=== PATIENT | male | born 1945 | race Caucasian/White ===

== ENCOUNTER 2016-06-09 01:53 | Emergency (ER) | payer OTHER ==
[2016-06-09] MEDS ORDERED: ASPIRIN 81 MG CHEW TAB PO ONE (01:59)
[2016-06-09] MEDS ORDERED: METOPROLOL TARTRATE 5 MG/5 ML VIAL IVP ONE (02:02)
[2016-06-09 02:20] LABS: BASOPHILS % 0.7 (0.0-1.5); MEAN CORPUSCULAR HEMOGLOBIN 30.3 pg (28.0-34.0)
[2016-06-09 02:24] LABS: EOSINOPHILS % 2.1 % (0.0-6.8); LYMPHOCYTES # 1.4 # k/uL (0.6-4.0); MONOCYTES # 0.6 # k/uL (0.0-0.9); MONOCYTES % 7.4 % (0.0-11.0); NEUTROPHILS # 5.6 # k/uL (1.4-7.7)
[2016-06-09] MEDS ORDERED: IPRATROPIUM/ALBUTEROL SULFATE 3 ML AMPUL.NEB NEB ONE (02:29)
[2016-06-09] MEDS ORDERED: BUDESONIDE 0.5MG/2ML AMPUL.NEB NEB ONE (02:30)
[2016-06-09 02:43] LABS: eGFR (African) > 60; eGFR (Non-African) > 60
--- NOTE | 2016-06-09 02:48 | Diagnostic Imaging Report ---
JANNETTE DOBBINS [facility] [address] [facility] [address] [address] Report Submission Date: Jun 09, 2016 2:13:50 AM OFFICE SERVICES ASSISTANT Patient Study Name: RAUL TAVARES Date: Jun 09, 2016 2:03:21 AM OFFICE SERVICES ASSISTANT Modality Type: CR Gender: M Description: CHEST : 41 Institution: [facility] Physician: JANNETTE DOBBINS Ap portable upright radiographs of the chest Clinical history: Chest pain Technique: anterior /posterior portable upright Findings: Increased markings are present in the lung bases.. Lung sweeney are hyperinflated. There is cardiomegaly. The aorta is tortuous... Arch calcification is present. The bony thorax is unremarkable. No pneumothorax or pleural effusion is seen. Impression: Hyperinflation Increased bibasilar lung markings of indeterminate age Cardiomegaly Tortuous thoracic aorta with aortic arch calcification Electronically signed on Jun 09, 2016 2:13:50 AM OFFICE SERVICES ASSISTANT by: Jorge BROWNING
[2016-06-09] MEDS ORDERED: CloNIDine HCL 0.1 MG TABLET PO ONE (02:52)
--- NOTE | 2016-06-09 03:49 | ED Physician Documentation ---
Chest Pain - HISTORIAN Historian: patient - HPI Stated Complaint: difficulty breathing Chief Complaint: Chest Pain Additional Information: sudden onset, squeezing, no radiation Onset: hours (2) Timing: sudden onset Duration: sudden-onset Last known Well Date: 06/08/16 Last Known Well Time: 22:00 Last known Well Code/Unknown Code: Unknown Context: activity Severity: moderate Quality: pressure Chest Pain Radiation: no radiation Chest Pain Signs/Symptoms: tachycardia. denies: nausea, vomiting, diaphoresis, tachypnea, hypotension Worsened By: movement Relieved By: nothing Further Comments: no - ROS CONST: none MS/LYMPH: none GI/: none EYES/ENT: none SKIN/ENDO: none NEURO/PSYCH: none - PAST HX IN risk factors: hypertension, diabetes Type 2 GI disease: none Lung disease: none Surgeries/Procedures: other (tonsillectomy) Allergies/Adverse Reactions: Allergies Allergy/AdvReac Type Severity Reaction Status Date / Time No Known Allergies Allergy Verified 06/09/16 02:39 Home Medications: Ambulatory Orders Medication Instructions Recorded Alpha Lipoic Acid 600 mg PO DAILY #30 av 04/04/15 Aspirin 325 mg PO DAILY #30 u2 04/04/15 Vitamin B Complex [B Complex] 2 each PO D u2 04/04/15 Guaifenesin [Mucinex] 1,200 mg PO BID 04/22/15 Mupirocin Calcium [Bactroban Nasal] 1 gm NS TID 04/22/15 Naproxen Sodium [Aleve] 220 mg PO DAILY av 04/22/15 Testosterone [Androgel] 75 gm TD DAILY 04/22/15 Carvedilol [Coreg] 12.5 mg PO BS #14 tablet 06/09/16 Valsartan [Diovan] 80 mg PO D 06/09/16 - SOCIAL HX Smoking History: non-smoker Alcohol Use: none Drug Use: none - FAMILY HX Family HX: none - VITAL SIGNS Vital Signs: Vital Signs Temp Pulse Resp BP Pulse Ox 97.8 F 80 20 195/110 100 06/09/16 01:54 06/09/16 03:00 06/09/16 01:54 06/09/16 01:54 06/09/16 03:00 - REVIEWED ASSESSMENTS Nursing Assessment Reviewed: Yes Vitals Reviewed: Yes Progress - Results/Orders Results/Orders: chest pain work up ordered plu d-dimer and bnp - Progress Progress: pt. given 5 mg metoprolol ivp and 0.1 mg p.o. clonidine in er, duoneb tx and pulmicort 0.5 mg neb tx in er. Feels well by time of dicharge, pain free Critical Care Note - Critical Care Note Total Time (mins): 0 ED Results Lab/Radiology - Lab Results Lab Results: Lab Results 06/09/16 06/09/16 06/09/16 02:40 02:30 02:14 WBC RBC Hgb Hct MCV MCH MCHC RDW Plt Count Neut % (Auto) Lymph % (Auto) [place] % (Auto) Eos % (Auto) Baso % (Auto) Neut # Lymph # [place] # Eos # Baso # Reactive Lymphs % Reactive Lymphs # D-Dimer 437 ng/mL ng/mL (6.0-682) Sodium Potassium Chloride Carbon Dioxide BUN Creatinine Est GFR ( Amer) Est GFR (Non-Af Amer) Glucose Calcium Total Bilirubin AST ALT Alkaline Phosphatase Troponin I < 0.03 ng/mL L ng/mL (0.03-0.06) NT-Pro-B Natriuret Pep 317.2 pg/mL H pg/mL (15.0-125.0) Total Protein Albumin 06/09/16 06/09/16 02:14 02:14 WBC 8.10 K/ul K/ul (4.00-12.00) RBC 5.53 M/ul H M/ul (3.90-5.20) Hgb 16.8 g/dL g/dL (12.0-18.0) Hct 50.4 % % (37.0-53.0) MCV 91.1 fl fl (80.0-100.0) MCH 30.3 pg pg (28.0-34.0) MCHC 33.3 g/dL g/dL (30.0-36.0) RDW 14.4 % H % (11.3-14.3) Plt Count 212 K/mm3 K/mm3 (130-400) Neut % (Auto) 69.0 % % (39.0-79.0) Lymph % (Auto) 16.7 % % (16.0-50.0) [place] % (Auto) 7.4 % % (0.0-11.0) Eos % (Auto) 2.1 % % (0.0-6.8) Baso % (Auto) 0.7 (0.0-1.5) Neut # 5.6 # k/uL # k/uL (1.4-7.7) Lymph # 1.4 # k/uL # k/uL (0.6-4.0) [place] # 0.6 # k/uL # k/uL (0.0-0.9) Eos # 0.2 # k/uL # k/uL (0.0-0.6) Baso # 0.1 # k/uL # k/uL (0.0-0.5) Reactive Lymphs % 4.2 % % (0.0-5.0) Reactive Lymphs # 0.3 # k/uL # k/uL (0.0-0.8) D-Dimer Sodium 139 mmol/L mmol/L (136-145) Potassium 3.9 mmol/L mmol/L (3.5-5.0) Chloride 100 mmol/L mmol/L (98-110) Carbon Dioxide 28 mmol/L mmol/L (20-32) BUN 27 mg/dL H mg/dL (10-26) Creatinine 1.2 mg/dL mg/dL (0.4-1.5) Est GFR ( Amer) > 60 (60 - ) Est GFR (Non-Af Amer) > 60 (60 - ) Glucose 216 mg/dL H mg/dL (70-99) Calcium 9.4 mg/dL mg/dL (8.5-10.5) Total Bilirubin 0.4 mg/dL mg/dL (0.2-1.2) AST 24 U/L U/L (0-41) ALT 26 U/L U/L (0-45) Alkaline Phosphatase 71 U/L U/L (46-116) Troponin I NT-Pro-B Natriuret Pep Total Protein 7.6 g/dL g/dL (6.0-8.5) Albumin 4.6 g/dL g/dL (3.0-5.5) - Radiology Radiology Impressions: cxr neg - Orders Orders: ED Orders Category Date Time Status Continuous EKG monitoring Q30M Care 06/09/16 01:59 Active Continuous Pulse Oximetry Q30M Care 06/09/16 01:[address] Saline Lock/IV NOW Care 06/09/16 01:59 Active CHEST 1 VIEW [RAD] Stat Exams 06/09/16 01:59 Completed BNP [NT-proBNP] Routine Lab 06/09/16 02:30 Completed CBC/PLATELET/DIFF Routine Lab 06/09/16 02:14 Completed CMP Routine Lab 06/09/16 02:14 Completed D DIMER Routine Lab 06/09/16 02:40 Completed TROPONIN I (cTnI) Stat Lab 06/09/16 02:14 Completed Aspirin Med 06/09/16 01:59 Discontinued 324 mg PO NOW ONE Budesonide [Pulmicort] Med 06/09/16 02:30 Discontinued 0.5 mg NEB 1T ONE Chem Sticks Med 06/09/16 07:30 Ordered 1 each CHEMQID CloNIDine HCL [Catapress] Med 06/09/16 02:52 Discontinued 0.1 mg PO NOW ONE Ipratropium/Albuterol Sulfate [Duoneb] Med 06/09/16 02:29 Discontinued 3 ml NEB NOW ONE Metoprolol Tartrate [Toprol] Med 06/09/16 02:02 Discontinued 5 mg IVP NOW ONE Oxygen Daily Oxygen 06/09/16 02:00 Ordered EKG WITH COMPARISON Stat Ther 06/09/16 01:59 Ordered Chest Pain Physical Exam - EXAM General Appearance: alert, mild distress EENT: eye inspection normal, ENT inspection normal, pharynx normal, no signs of dehydration, AMBER, no nystagmus, TM's nml Neck: nml inspection, no carotid bruit. No: JVD present Respiratory: no resp. distress, chest non-tender, nml breath sounds. No: resp.distress CVS: irregularly irreg. rhythm Abdomen: soft, no organomegaly, normal bowel sounds, no abdominal bruit, no distension, non-tender Skin: warm/dry, normal color Extremities: non-tender, normal range of motion, no evidence of injury Neuro: oriented X3, CN's nml as tested, motor nml, sensation nml, mood/affect nml, cognition normal Discharge Clincal Impression: Accelerated hypertension Prescriptions: Carvedilol [Coreg] 12.5 mg PO BS #14 tablet Referrals: Manuela Harper FNP [Primary Care Provider] - 2 Days Home Medications: Ambulatory Orders Alpha Lipoic Acid 600 mg PO DAILY #30 av 04/04/15 Aspirin 325 mg PO DAILY #30 u2 04/04/15 Vitamin B Complex [B Complex] 2 each PO D u2 04/04/15 Guaifenesin [Mucinex] 1,200 mg PO BID 04/22/15 Mupirocin Calcium [Bactroban Nasal] 1 gm NS TID 04/22/15 Naproxen Sodium [Aleve] 220 mg PO DAILY av 04/22/15 Testosterone [Androgel] 75 gm TD DAILY 04/22/15 Carvedilol [Coreg] 12.5 mg PO BS #14 tablet 06/09/16 Valsartan [Diovan] 80 mg PO D 06/09/16 Comments: discharged home in stable condition with script for Coreg 12.5 mg 1 p.o. daily # 15 Condition: Stable Disposition: 01 HOME, SELF-CARE Decision to Admit: NO Decision Time: 03:45
[2016-06-09 03:56] VITALS: BP 158/94
== END 2016-06-09 03:50 | disposition home or self-care (01) ==
LOC: ED 01:53
DX: I10 Essential (primary) hypertension (principal)
CPT/HCPCS: 71010; 80053; 83880; 84484; 85025; 85379; 93005; J3490; J7626; 96374; 99283; 99284; S1016

== ENCOUNTER 2016-06-18 09:48 | Emergency (ER) | payer OTHER ==
[2016-06-18] MEDS ORDERED: ASPIRIN 81 MG CHEW TAB PO ONE (10:10)
--- NOTE | 2016-06-18 10:28 | ED Physician Documentation ---
Chest Pain - HISTORIAN Historian: patient - HPI Stated Complaint: chect pain SOA Chief Complaint: Chest Pain Additional Information: 3 days worth of symptoms, he was here saturday night for same. AMI ruled out, he was doing better over the weekend. but this 399, he was awakened with tightness and aching in his middle chest and back and arms. he tried stretching exercises to alleviate, to no affect. he said he should have come in then but waited til now. The SOA is worse at this time, with SOA with talking or walking. Onset: days ago Timing: gradual onset Last known Well Date: 06/01/16 Last Known Well Time: 11:00 Last known Well Code/Unknown Code: Unknown Context: sleep Severity: moderate Quality: tightness, aching Chest Pain Radiation: arms, neck, back Chest Pain Signs/Symptoms: dyspnea. denies: nausea, diaphoresis, dizziness Worsened By: exertion Relieved By: nothing Further Comments: no - ROS CONST: none MS/LYMPH: none GI/: none EYES/ENT: none SKIN/ENDO: none NEURO/PSYCH: none - PAST HX MD risk factors: diabetes Type 2 DVT/PE Risk Factors: none TAD/AAA risk factors: none Neuro deficit: none GI disease: none Lung disease: asthma Surgeries/Procedures: none Immunizations: UTD Allergies/Adverse Reactions: Allergies Allergy/AdvReac Type Severity Reaction Status Date / Time No Known Allergies Allergy Verified 06/18/16 10:38 Home Medications: Ambulatory Orders Medication Instructions Recorded Alpha Lipoic Acid 600 mg PO DAILY #30 av 04/04/15 Aspirin 325 mg PO DAILY #30 u2 04/04/15 Vitamin B Complex [B Complex] 2 each PO D u2 04/04/15 Guaifenesin [Mucinex] 1,200 mg PO BID 04/22/15 Mupirocin Calcium [Bactroban Nasal] 1 gm NS TID 04/22/15 Naproxen Sodium [Aleve] 220 mg PO DAILY av 04/22/15 Testosterone [Androgel] 75 gm TD DAILY 04/22/15 Carvedilol [Coreg] 12.5 mg PO BS #14 tablet 06/09/16 Valsartan [Diovan] 80 mg PO D 06/09/16 - SOCIAL HX Smoking History: non-smoker Alcohol Use: none Drug Use: none - FAMILY HX Family HX: none - VITAL SIGNS Vital Signs: Vital Signs Temp Pulse Resp BP Pulse Ox 158/94 06/09/16 03:53 - REVIEWED ASSESSMENTS Nursing Assessment Reviewed: Yes Vitals Reviewed: Yes Progress - Results/Orders Results/Orders: spoke with [facility], Cardiology accepted transfer, direct to cardiac [facility] [employer]. ED Results Lab/Radiology - Lab Results Lab Results: CK-MB elev .13, CK-MB elev to 6.6 wbc elev 12.5 Glucose 160 BUN 30 - Radiology Radiology Impressions: pulmonary congestion - Orders Orders: ED Orders Category Date Time Status Continuous EKG monitoring Q30M Care 06/18/16 10:10 Active Continuous Pulse Oximetry Q30M Care 06/18/16 10:[address] Saline Lock/IV NOW Care 06/18/16 10:10 Active CHEST 1 VIEW [RAD] Stat Exams 06/18/16 10:10 Ordered CBC/PLATELET/DIFF Routine Lab 06/18/16 10:10 Ordered CKMB Stat Lab 06/18/16 Ordered CMP Routine Lab 06/18/16 10:10 Ordered CREATINE KINASE Routine Lab 06/18/16 10:10 Ordered TROPONIN I (cTnI) Stat Lab 06/18/16 Ordered Aspirin Med 06/18/16 10:10 Discontinued 324 mg PO NOW ONE Oxygen Daily Oxygen 06/18/16 10:15 Ordered EKG WITH COMPARISON Stat Ther 06/18/16 10:10 Ordered Chest Pain Physical Exam - EXAM General Appearance: no acute distress, alert, anxious EENT: ENT inspection normal, pharynx normal, no signs of dehydration Neck: nml inspection, no carotid bruit. No: JVD present Respiratory: no resp. distress, nml breath sounds CVS: reg. rate & rhythm, no murmur, pulses equal Abdomen: soft Skin: warm/dry, normal color Extremities: non-tender, no edema Neuro: oriented X3 Discharge Clincal Impression: ST elevation, Troponin level elevated, Diabetes 1.5, managed as type 2 Dyspnea Qualifiers: Dyspnea type: shortness of breath Qualified Code(s): R06.02 - Shortness of breath Home Medications: Ambulatory Orders Alpha Lipoic Acid 600 mg PO DAILY #30 av 04/04/15 Aspirin 325 mg PO DAILY #30 u2 04/04/15 Vitamin B Complex [B Complex] 2 each PO D u2 04/04/15 Guaifenesin [Mucinex] 1,200 mg PO BID 04/22/15 Mupirocin Calcium [Bactroban Nasal] 1 gm NS TID 04/22/15 Naproxen Sodium [Aleve] 220 mg PO DAILY av 04/22/15 Testosterone [Androgel] 75 gm TD DAILY 04/22/15 Carvedilol [Coreg] 12.5 mg PO BS #14 tablet 06/09/16 Valsartan [Diovan] 80 mg PO D 06/09/16 Condition: Stable Disposition: 02 XFER SHT-TRM HOSP Decision to Admit: NO Date of Decison to Admit: 06/18/16 Decision Time: 11:20
[2016-06-18 10:35] LABS: BASOPHILS % 0.3 (0.0-1.5); EOSINOPHILS % 0.4 % (0.0-6.8); LYMPHOCYTES # 0.7 # k/uL (0.6-4.0); MEAN CORPUSCULAR HEMOGLOBIN 31.2 pg (28.0-34.0); MONOCYTES # 0.4 # k/uL (0.0-0.9); MONOCYTES % 3.6 % (0.0-11.0); NEUTROPHILS # 11.1 # k/uL (1.4-7.7)
[2016-06-18 10:56] LABS: eGFR (African) > 60; eGFR (Non-African) > 60
--- NOTE | 2016-06-18 11:20 | Diagnostic Imaging Report ---
[facility] [address] [facility] [address] Report Submission Date: Jun 18, 2016 11:11:11 AM CDT Patient Study Name: RAUL TAVARES Date: Jun 18, 2016 10:27:58 AM CDT Modality Type: CR Gender: M Description: CHEST : 41 Institution: [facility] Physician CAROL ANN HARDWICK Portable view of the chest Clinical history: Chest pain Findings: The heart size at upper limits of normal. There is pulmonary venous congestion. There are bilateral lower lobe infiltrates which may reflect mild pulmonary edema. No pleural effusion or pneumothorax. Impression: Mild cardiomegaly with pulmonary venous congestion and likely mild interstitial edema. Electronically signed on Jun 18, 2016 11:11:11 AM CDT by: Jin BROWNING
[2016-06-18 11:31] VITALS: BP 129/96
== END 2016-06-18 11:23 | disposition short-term general hospital (02) ==
LOC: ED 09:48
DX: E10.65 Type 1 diabetes mellitus with hyperglycemia (principal); R06.02 Shortness of breath
CPT/HCPCS: 36415; 71010; 80053; 82550; 82553; 84484; 85025; 99283; S1016